=== PATIENT | male | born 1955 | race Caucasian/White ===

== ENCOUNTER 2016-08-03 07:14 | Day surgery (SDC) | payer MEDICARE ==
[~2016-08-03] VITALS: Ht 172.7 cm; Wt 81.6 kg
[~2016-08-03 07:14] MED LIST: CELEXA20 MG PO; PRAVACHOL40 MG PO; TRAZODONE HCL50 MG PO
[2016-08-03] MEDS ORDERED: CHLOR-TRIMETON4 MG PO (08:21)
[2016-08-03 08:30] VITALS: BP 151/85; Ht 172.7 cm; Wt 81.6 kg
--- NOTE | 2016-08-03 11:12 | NUR ---
1030: PT STATED NO FAMILY PRESENT WITH HIM. -ECOSTER
[2016-08-03] MEDS ORDERED: HYDROCODON-ACE1 EAC7 PO (12:19)
[2016-08-03] MEDS ORDERED: FUROSEMIDE20 MG PO (12:20)
[2016-08-03] MEDS ORDERED: FLOMAX0.4 MG PO (12:20)
--- NOTE | 2016-08-03 21:55 | OP ---
PATIENT NAME: GENNY LOBATO MEDICAL RECORD: [id number] :53 LOCATION:[facility] ADMISSION DATE: SURGEON: VENKAT HUTCHINS MD DATE OF OPERATION: 08/03/2016 SURGEON: Venkat Hutchins MD PREOPERATIVE DIAGNOSIS: Bilateral reducible inguinal hernias. POSTOPERATIVE DIAGNOSIS: Bilateral reducible inguinal hernias. PROCEDURE PERFORMED: Laparoscopic bilateral inguinal hernia repair with mesh. ANESTHESIA: General. COMPLICATIONS: None. SPECIMENS: None. Case was clean. ESTIMATED BLOOD LOSS: 20 cc. OPERATIVE COURSE: After consent was obtained, the patient was taken to the operating room and placed in the supine position on the operating table. Next, general anesthesia was given via endotracheal intubation. After a timeout was performed that confirmed the correct patient and procedure, the abdomen was prepped and draped in typical sterile fashion. Ioban dressing was placed and local anesthetic was injected just above and lateral to the umbilicus. A stab incision was made with a 15-blade scalpel. Dissection continued to the level of the external oblique fascia using electrocautery. Next, local anesthetic was injected below the external oblique fascia. The fascia was incised with a 15-blade scalpel. The rectus muscle was gently split with a blunt Lizbeth until the posterior fascia was identified. The Spacemaker trocars were then placed into the preperitoneal space and advanced to the pubic tubercle. The balloon was inflated. Once the Spacemaker balloon had been left in place, the balloon was deflated and it was removed. The preperitoneal space was then insufflated with CO2. The patient was placed in the steep reverse Trendelenburg position. Two 5-mm trocars were then placed into the preperitoneal space after administration of local anesthetic. There was left lower quadrant and right lower quadrant trocars that were placed with blunt dissection. The preperitoneal space was then continued. The pubic tubercle was identified on both sides. Dissection continued along the pubic tubercle. We started on the left side and the left sided inferior epigastric vessels were identified There was both direct and indirect component on the left side. The direct space was dissected. The indirect space was dissected and the peritoneum was dissected to the point where the cord was noted to be running medially, and the vessels were running laterally. Again, this was repeated on the right side. Again, there was an element of a pantaloon hernia. There was a direct hernia defect as well as an indirect hernia defect. The direct hernia defect was bluntly dissected first with the addition of electrocautery. The epigastric vessels were identified. The cord structures were identified to the internal ring. The peritoneum was dissected until the cord was noted to be running medially and again, the vessels were running laterally. All contents of the indirect hernia were reduced with a combination of blunt dissection and electrocautery. Once OPERATIVE REPORT [id number] GENNY LOBATO this was complete, 2 Bard 3D soft meshes were placed into the preperitoneal space, a right and left sided preformed mesh. The left side mesh was placed first. It was secured to Maik's ligament medially with the OptiFix Tacker. A stitch was placed in the posterior rectus. This one was a single tack laterally. This was repeated on the right side, again, the mesh was secured medially at the Maik's ligament with the OptiFix Tacker and 2 tacks were placed in the rectus in the midline. A single tack laterally, covering both the direct and indirect spaces on both sides. Once this was complete, the preperitoneal space was copiously irrigated and suctioned. Careful attention was paid to hemostasis, which was obtained with electrocautery. All instruments were removed. The preperitoneal space was deflated. The trocars were then removed. The external oblique fascia was closed with a 0 Vicryl suture and skin was closed with 4-0 Monocryl, Mastisol and Steri-Strips. At the end of the case, all needle and instrument counts were correct. No complications occurred. At the case, both testicles were noted to be within the scrotum. TRANSINT:[id number] Voice Confirmation ID: [id number] DOCUMENT ID: [id number] VENKAT HUTCHINS MD at [id number] CC: [id number] DICTATION DATE: 08/03/16 1217 [employer] MANAGER: [id number] [facility] 08/03/16 [facility] [address] [id number]
== END 2016-08-03 16:30 | disposition home or self-care (01) ==
LOC: D.OPS 07:14 → D.PAN 09:45 → D.OPS 16:30
DX: K40.20 Bilateral inguinal hernia, without obstruction or gangrene, not specified as recurrent (principal); I10 Essential (primary) hypertension